=== PATIENT | male | born 1995 | race African-American/Black ===

== ENCOUNTER 2024-01-23 08:17 | Emergency (ER) | payer SELFPAY ==
[~2024-01-23] VITALS: Ht 187.9 cm
[2024-01-23] MEDS ORDERED: POLYTRIM 1000010 ML OPH (09:38)
[2024-01-23] MEDS ORDERED: Polymyxin B Sulfate/Trimetho 10 ML BOT OPH SCH (12:00)
== END 2024-01-23 09:16 | disposition home or self-care (01) ==
LOC: ED 08:17
DX: H10.89 Other conjunctivitis (principal); Z87.891 Personal history of nicotine dependence